=== PATIENT | male | born 1975 | race Caucasian/White ===

== ENCOUNTER 2017-08-01 03:01 | Emergency (ER) | payer SELFPAY ==
[~2017-08-01] VITALS: Ht 175.3 cm; Wt 86.4 kg
[2017-08-01] MEDS ORDERED: HALO5 PO (03:09)
[2017-08-01] MEDS ORDERED: LITH300C3 PO (03:09)
[2017-08-01 03:12] LABS: GLUCOSE,POINT OF CARE 111 MG/DL (70-110)
[2017-08-01 04:09] LABS: AMPHET/METH SCREEN,URINE NEGATIVE (NEGATIVE); BARBITURATE SCREEN, URINE NEGATIVE (NEGATIVE); BENZODIAZEPINES SCREEN,URINE NEGATIVE (NEGATIVE); CANNABINOID SCREEN,URINE POSITIVE (NEGATIVE); COCAINE SCREEN,URINE NEGATIVE (NEGATIVE); METHADONE SCREEN, URINE NEGATIVE (NEGATIVE); OPIATE SCREEN,URINE NEGATIVE (NEGATIVE)
[2017-08-01 04:10] LABS: PHENCYCLIDINE SCREEN,URINE NEGATIVE (NEGATIVE)
[2017-08-01 05:04] VITALS: BP 133/80
== END 2017-08-01 05:06 | disposition home or self-care (01) ==
LOC: EMS 03:03
DX: M79.674 Pain in right toe(s) (principal); F12.90 Cannabis use, unspecified, uncomplicated; E11.9 Type 2 diabetes mellitus without complications; F17.210 Nicotine dependence, cigarettes, uncomplicated
CPT/HCPCS: 36415; 80307; 82962; 99284; G0480

== ENCOUNTER 2018-02-07 18:36 | Inpatient (IN) | payer MEDICAID ==
[~2018-02-07] VITALS: Ht 180.3 cm; Wt 92.5 kg
[~2018-02-07 18:36] MED LIST: HALO5TAB2 PO; LITH300C3 PO
[2018-02-07 19:38] LABS: BASOPHILS % (AUTO) 0.8 % (0.0-2.0); EOSINOPHILS % (AUTO) 3.5 % (1.0-6.0); HEMATOCRIT 42.5 % (41-53); HEMOGLOBIN 14.2 g/dL (13.5-17.5); LYMPHOCYTES # (AUTO) 4.4 K/uL (1.0-4.8); LYMPHOCYTES % (AUTO) 28.9 % (22.0-44.0); MEAN CORPUSCULAR HEMOGLOBIN 26.3 pg (26.0-34.0); MEAN CORPUSCULAR HGB CONC 33.5 G/dL (31.0-37.0); MEAN CORPUSCULAR VOLUME 79 fL (80-100); MONOCYTES # (AUTO) 1.3 K/uL (0.1-1.0); MONOCYTES % (AUTO) 8.3 % (2.0-9.0); NEUTROPHILS % (AUTO) 58.5 % (40.0-70.0); PLATELET COUNT (AUTO) 326 K/uL (150-450); RED BLOOD CELL COUNT(AUTO) 5.41 MIL/uL (4.50-5.90)
[2018-02-07 19:44] LABS: GLUCOSE,POINT OF CARE 117 MG/DL (70-110)
[2018-02-07 19:48] LABS: ANION GAP 6 mmol/L (8-16); CALCIUM, TOTAL 8.8 mg/dL (8.8-10.5); CARBON DIOXIDE 29 mmol/L (22-29); CHLORIDE 107 mmol/L (98-107); CREATININE 0.83 mg/dL (0.60-1.30); GLOMERULAR FILTR. RATE CALC > 60 mL/min (>60); GLUCOSE,RANDOM 105 mg/dL (70-110); POTASSIUM 3.6 mmol/L (3.5-5.1); SODIUM SERUM 142 mmol/L (136-145); UREA NITROGEN, BLOOD 10 mg/dL (7-18)
[2018-02-07 19:54] LABS: ALANINE AMINOTRANSFERASE 23 U/L (12-78); ALBUMIN 3.7 g/dL (3.4-5.0); ALKALINE PHOSPHATASE 94 U/L (46-116); ASPARTATE AMINOTRANSFERASE 13 U/L (15-37); BILIRUBIN,TOTAL 0.6 mg/dL (0.1-1.0); LITHIUM < 0.20 mmol/L (0.60-1.20); TOTAL PROTEIN, SERUM 7.3 g/dL (6.4-8.2)
[2018-02-07 20:46] LABS: AMPHET/METH SCREEN,URINE POSITIVE (NEGATIVE); BARBITURATE SCREEN, URINE NEGATIVE (NEGATIVE); BENZODIAZEPINES SCREEN,URINE NEGATIVE (NEGATIVE); CANNABINOID SCREEN,URINE POSITIVE (NEGATIVE); COCAINE SCREEN,URINE NEGATIVE (NEGATIVE); METHADONE SCREEN, URINE NEGATIVE (NEGATIVE); OPIATE SCREEN,URINE NEGATIVE (NEGATIVE)
[2018-02-07 20:47] LABS: PHENCYCLIDINE SCREEN,URINE NEGATIVE (NEGATIVE)
[2018-02-07] MEDS ORDERED: ZOLPIDEM TARTRATE 10 MG TABLET PO PRN (21:45)
[2018-02-07] MEDS ORDERED: HALOPERIDOL 5 MG TABLET PO PRN (21:45)
[2018-02-08 01:46] VITALS: BP 142/65
[2018-02-08] MEDS: LORazepam 2 MG TABLET PO PRN ×2 (02:46→16:57)
[2018-02-08] MEDS ORDERED: PNEUMOCOCCAL VACCINE POLYVALENT 0.5 ML VIAL [PPSV23] IM ONE (03:15)
[2018-02-08] MEDS ORDERED: DOCUSATE SODIUM 100 MG CAPSULE PO PRN (07:15)
[2018-02-08] MEDS ORDERED: ONDANSETRON HCL 4 MG TABLET PO PRN (07:15)
[2018-02-08] MEDS ORDERED: MAGNESIUM HYDROXIDE SUSPENSION 30 ML UDCUP PO PRN (07:15)
[2018-02-08] MEDS ORDERED: LOPERAMIDE HCL 2 MG CAPSULE PO PRN (07:15)
[2018-02-08] MEDS ORDERED: PETROLATUM,WHITE 71 GM JELLY TP PRN (07:15)
[2018-02-08] MEDS ORDERED: GuaiFENesin/D-METHORPHAN [SUGAR-FREE] 200-20MG/10 ML SYRUP UDCUP PO PRN (07:15)
[2018-02-08] MEDS ORDERED: MAG HYDROX/AL HYDROX/SIMETH ES 30 ML SUSPENSION UDCUP PO PRN (07:15)
[2018-02-08] MEDS ORDERED: ACETAMINOPHEN 325 MG TABLET PO PRN (07:15)
[2018-02-08] MEDS ORDERED: IBUPROFEN 400 MG TABLET PO PRN (07:15)
[2018-02-08] MEDS ORDERED: ALBUTEROL SULFATE HFA 90 MCG/PUFF 8 GM INHALER IH PRN (07:15)
[2018-02-08] MEDS ORDERED: CloNIDine HCL 0.1 MG TABLET PO PRN (07:15)
[2018-02-08 08:09] VITALS: BP 138/64
[2018-02-08 08:46] LABS: CHOL/HDL RATIO 4.5 (4.2-7.3); FREE T4 (FREE THYROXINE) 1.03 ng/dL (0.76-1.46); THYROID STIMULATING HORMONE 0.44 uIU/mL (0.36-3.74)
[2018-02-08] MEDS: HALOPERIDOL 5 MG TABLET PO SCH ×2 (12:37→16:57)
[2018-02-08] MEDS: LITHIUM CARBONATE 300 MG CAPSULE PO SCH ×2 (12:37→16:57)
[2018-02-08 16:00] VITALS: BP 111/85
[2018-02-09 05:14] VITALS: BP 122/72
[2018-02-09 08:00] LABS: AMPHET/METH SCREEN,URINE POSITIVE (NEGATIVE); BARBITURATE SCREEN, URINE NEGATIVE (NEGATIVE); BENZODIAZEPINES SCREEN,URINE NEGATIVE (NEGATIVE); CANNABINOID SCREEN,URINE POSITIVE (NEGATIVE); COCAINE SCREEN,URINE NEGATIVE (NEGATIVE); METHADONE SCREEN, URINE NEGATIVE (NEGATIVE); OPIATE SCREEN,URINE NEGATIVE (NEGATIVE); PHENCYCLIDINE SCREEN,URINE NEGATIVE (NEGATIVE)
[2018-02-09 08:08] VITALS: BP 118/71
[2018-02-09] MEDS: LITHIUM CARBONATE 300 MG CAPSULE PO SCH ×2 (08:37→16:30)
[2018-02-09] MEDS: HALOPERIDOL 5 MG TABLET PO SCH ×2 (08:37→16:30)
[2018-02-09] MEDS: NICOTINE 14 MG/24 HOUR PATCH TD PRN (14:52)
[2018-02-09 16:00] VITALS: BP 115/65
[2018-02-10 06:08] VITALS: BP 110/65
[2018-02-10 08:41] VITALS: BP 118/75
[2018-02-10] MEDS: HALOPERIDOL 5 MG TABLET PO SCH ×2 (09:01→17:08)
[2018-02-10] MEDS: LITHIUM CARBONATE 300 MG CAPSULE PO SCH ×2 (09:01→17:08)
[2018-02-10] MEDS: LORazepam 2 MG TABLET PO PRN ×2 (09:01→17:08)
[2018-02-10 09:38] LABS: ALANINE AMINOTRANSFERASE 23 U/L (12-78); ALKALINE PHOSPHATASE 96 U/L (46-116); ANION GAP 6 mmol/L (8-16); ASPARTATE AMINOTRANSFERASE 11 U/L (15-37); BILIRUBIN,TOTAL 0.8 mg/dL (0.1-1.0); CALCIUM, TOTAL 9.4 mg/dL (8.8-10.5); CARBON DIOXIDE 29 mmol/L (22-29); CHLORIDE 102 mmol/L (98-107); CHOL/HDL RATIO 5.6 (4.2-7.3); CHOLESTEROL 201 mg/dL (131-200); CREATININE 1.02 mg/dL (0.60-1.30); GLOMERULAR FILTR. RATE CALC > 60 mL/min (>60); GLUCOSE,RANDOM 183 mg/dL (70-110); HDL CHOLESTEROL 36 mg/dL (40-60); LDL CHOL (CALC.) 128 mg/dL (0-130); SODIUM SERUM 137 mmol/L (136-145); THYROID STIMULATING HORMONE 0.28 uIU/mL (0.36-3.74); TOTAL PROTEIN, SERUM 7.6 g/dL (6.4-8.2); TRIGLYCERIDES 187 mg/dL (15-150); UREA NITROGEN, BLOOD 15 mg/dL (7-18)
[2018-02-10 16:00] VITALS: BP 122/79
[2018-02-11 06:32] VITALS: BP 137/70
[2018-02-11 08:09] VITALS: BP 132/70
[2018-02-11 08:27] LABS: EOSINOPHILS % (AUTO) 2.9 % (1.0-6.0); HEMATOCRIT 50.4 % (41-53); HEMOGLOBIN 16.6 g/dL (13.5-17.5); LYMPHOCYTES # (AUTO) 2.5 K/uL (1.0-4.8); LYMPHOCYTES % (AUTO) 17.5 % (22.0-44.0); MEAN CORPUSCULAR HEMOGLOBIN 26.3 pg (26.0-34.0); MEAN CORPUSCULAR VOLUME 80 fL (80-100); MONOCYTES # (AUTO) 0.9 K/uL (0.1-1.0); MONOCYTES % (AUTO) 6.3 % (2.0-9.0); NEUTROPHILS # (AUTO) 10.4 K/uL (1.8-7.7); NEUTROPHILS % (AUTO) 72.3 % (40.0-70.0); PLATELET COUNT (AUTO) 383 K/uL (150-450); RED BLOOD CELL COUNT(AUTO) 6.32 MIL/uL (4.50-5.90); RED CELL DISTRIBUTION WIDTH 12.9 % (11.5-14.5)
[2018-02-11] MEDS: HALOPERIDOL 5 MG TABLET PO SCH ×2 (08:30→16:15)
[2018-02-11] MEDS: LITHIUM CARBONATE 300 MG CAPSULE PO SCH ×2 (08:30→16:15)
[2018-02-11] MEDS: LORazepam 2 MG TABLET PO PRN ×2 (09:46→16:15)
[2018-02-11 16:00] VITALS: BP 118/75
[2018-02-12 02:07] VITALS: BP 115/86
[2018-02-12] MEDS: LITHIUM CARBONATE 300 MG CAPSULE PO SCH ×2 (08:26→16:33)
[2018-02-12] MEDS: HALOPERIDOL 5 MG TABLET PO SCH ×2 (08:26→16:33)
[2018-02-12 09:06] VITALS: BP 126/75
[2018-02-12] MEDS: NICOTINE 14 MG/24 HOUR PATCH TD PRN (11:30)
[2018-02-12] MEDS: LORazepam 2 MG TABLET PO PRN (16:34)
[2018-02-12 17:19] VITALS: BP 121/72
[2018-02-13 06:04] VITALS: BP 122/70
[2018-02-13 08:09] VITALS: BP 118/76
[2018-02-13 08:21] LABS: BASOPHILS % (AUTO) 0.9 % (0.0-2.0); HEMATOCRIT 47.8 % (41-53); HEMOGLOBIN 15.8 g/dL (13.5-17.5); LYMPHOCYTES # (AUTO) 2.5 K/uL (1.0-4.8); LYMPHOCYTES % (AUTO) 17.4 % (22.0-44.0); MEAN CORPUSCULAR HEMOGLOBIN 26.5 pg (26.0-34.0); MEAN CORPUSCULAR HGB CONC 33.1 G/dL (31.0-37.0); MEAN CORPUSCULAR VOLUME 80 fL (80-100); MONOCYTES # (AUTO) 0.8 K/uL (0.1-1.0); MONOCYTES % (AUTO) 5.8 % (2.0-9.0); NEUTROPHILS # (AUTO) 10.5 K/uL (1.8-7.7); NEUTROPHILS % (AUTO) 71.9 % (40.0-70.0); PLATELET COUNT (AUTO) 338 K/uL (150-450); RED BLOOD CELL COUNT(AUTO) 5.98 MIL/uL (4.50-5.90); RED CELL DISTRIBUTION WIDTH 13.2 % (11.5-14.5)
[2018-02-13] MEDS: OMEGA-3/DHA/EPA/FISH OIL 1,000 MG CAPSULE PO SCH (08:29)
[2018-02-13] MEDS: LITHIUM CARBONATE 300 MG CAPSULE PO SCH ×2 (08:29→16:57)
[2018-02-13] MEDS: HALOPERIDOL 5 MG TABLET PO SCH ×2 (08:29→16:56)
[2018-02-13] MEDS: NICOTINE 14 MG/24 HOUR PATCH TD PRN (12:58)
[2018-02-13 16:58] VITALS: BP 114/67
[2018-02-14 06:19] VITALS: BP 119/70
[2018-02-14 08:09] VITALS: BP 122/74
[2018-02-14] MEDS: LITHIUM CARBONATE 300 MG CAPSULE PO SCH ×2 (09:13→16:14)
[2018-02-14] MEDS: HALOPERIDOL 5 MG TABLET PO SCH ×2 (09:13→16:14)
[2018-02-14] MEDS: OMEGA-3/DHA/EPA/FISH OIL 1,000 MG CAPSULE PO SCH (09:14)
[2018-02-14] MEDS: NICOTINE 14 MG/24 HOUR PATCH TD PRN (13:22)
[2018-02-14 16:00] VITALS: BP 118/68
[2018-02-14] MEDS: LORazepam 2 MG TABLET PO PRN (16:14)
[2018-02-15 06:28] VITALS: BP 122/73
[2018-02-15 08:17] VITALS: BP 120/70
[2018-02-15] MEDS: LITHIUM CARBONATE 300 MG CAPSULE PO SCH ×2 (08:27→16:17)
[2018-02-15] MEDS: OMEGA-3/DHA/EPA/FISH OIL 1,000 MG CAPSULE PO SCH (08:27)
[2018-02-15] MEDS: HALOPERIDOL 5 MG TABLET PO SCH ×2 (08:27→16:17)
[2018-02-15 16:00] VITALS: BP 129/65
[2018-02-15] MEDS: LORazepam 2 MG TABLET PO PRN (16:17)
[2018-02-16 06:20] VITALS: BP 128/78
[2018-02-16 08:09] VITALS: BP 124/68
[2018-02-16] MEDS: LITHIUM CARBONATE 300 MG CAPSULE PO SCH ×2 (08:35→16:57)
[2018-02-16] MEDS: HALOPERIDOL 5 MG TABLET PO SCH ×2 (08:35→16:58)
[2018-02-16] MEDS: OMEGA-3/DHA/EPA/FISH OIL 1,000 MG CAPSULE PO SCH (08:35)
[2018-02-16] MEDS: LORazepam 2 MG TABLET PO PRN ×2 (08:35→16:57)
[2018-02-16 16:00] VITALS: BP 111/73
[2018-02-17 03:14] VITALS: BP 124/72
[2018-02-17 08:12] VITALS: BP 117/70
[2018-02-17] MEDS: OMEGA-3/DHA/EPA/FISH OIL 1,000 MG CAPSULE PO SCH (08:36)
[2018-02-17] MEDS: HALOPERIDOL 5 MG TABLET PO SCH ×2 (08:36→16:49)
[2018-02-17] MEDS: LITHIUM CARBONATE 300 MG CAPSULE PO SCH (08:36)
[2018-02-17 16:00] VITALS: BP 110/67
[2018-02-17] MEDS: LORazepam 2 MG TABLET PO PRN (16:49)
[2018-02-17] MEDS: LITHIUM CARBONATE 600 MG CAPSULE PO SCH (16:49)
[2018-02-18 00:42] VITALS: BP 120/83
[2018-02-18 08:05] VITALS: BP 114/64
[2018-02-18 08:21] LABS: BASOPHILS % (AUTO) 2.3 % (0.0-2.0); EOSINOPHILS % (AUTO) 4.9 % (1.0-6.0); HEMATOCRIT 47.4 % (41-53); HEMOGLOBIN 16.1 g/dL (13.5-17.5); LYMPHOCYTES # (AUTO) 2.8 K/uL (1.0-4.8); LYMPHOCYTES % (AUTO) 23.3 % (22.0-44.0); MEAN CORPUSCULAR HEMOGLOBIN 26.6 pg (26.0-34.0); MEAN CORPUSCULAR VOLUME 78 fL (80-100); MONOCYTES # (AUTO) 0.9 K/uL (0.1-1.0); MONOCYTES % (AUTO) 7.5 % (2.0-9.0); NEUTROPHILS # (AUTO) 7.6 K/uL (1.8-7.7); PLATELET COUNT (AUTO) 330 K/uL (150-450); RED BLOOD CELL COUNT(AUTO) 6.06 MIL/uL (4.50-5.90)
[2018-02-18] MEDS ORDERED: ARIPiprazole ER SUSPENSION 400 MG PRE-FILLED DUAL CHAMBER SYRINGE IM SCH (09:00)
[2018-02-18] MEDS: HALOPERIDOL 5 MG TABLET PO SCH (09:57)
[2018-02-18] MEDS: LITHIUM CARBONATE 600 MG CAPSULE PO SCH ×2 (09:57→16:10)
[2018-02-18] MEDS: OMEGA-3/DHA/EPA/FISH OIL 1,000 MG CAPSULE PO SCH (09:58)
[2018-02-18 16:00] VITALS: BP 108/68
[2018-02-18] MEDS: LORazepam 2 MG TABLET PO PRN (16:10)
[2018-02-19 05:30] VITALS: BP 112/75
[2018-02-19 08:08] VITALS: BP 110/76
[2018-02-19] MEDS: LITHIUM CARBONATE 600 MG CAPSULE PO SCH ×2 (08:19→16:26)
[2018-02-19] MEDS: OMEGA-3/DHA/EPA/FISH OIL 1,000 MG CAPSULE PO SCH (08:19)
[2018-02-19 16:00] VITALS: BP 121/71
[2018-02-19] MEDS: LORazepam 2 MG TABLET PO PRN (16:26)
[2018-02-20 05:13] VITALS: BP 115/73
[2018-02-20] MEDS: OMEGA-3/DHA/EPA/FISH OIL 1,000 MG CAPSULE PO SCH (08:33)
[2018-02-20] MEDS: LITHIUM CARBONATE 600 MG CAPSULE PO SCH ×2 (08:33→16:51)
[2018-02-20 08:49] VITALS: BP 127/67
[2018-02-20 16:11] VITALS: BP 123/74
[2018-02-20] MEDS: LORazepam 2 MG TABLET PO PRN (16:51)
[2018-02-21 05:11] VITALS: BP 122/75
[2018-02-21] MEDS: LITHIUM CARBONATE 600 MG CAPSULE PO SCH ×2 (08:22→16:53)
[2018-02-21] MEDS: OMEGA-3/DHA/EPA/FISH OIL 1,000 MG CAPSULE PO SCH (08:23)
[2018-02-21 09:24] VITALS: BP 113/73
[2018-02-21 17:22] VITALS: BP 104/65
[2018-02-22 04:27] VITALS: BP 108/70
[2018-02-22 08:09] VITALS: BP 112/74
[2018-02-22] MEDS: LITHIUM CARBONATE 600 MG CAPSULE PO SCH ×2 (08:41→17:02)
[2018-02-22] MEDS: OMEGA-3/DHA/EPA/FISH OIL 1,000 MG CAPSULE PO SCH (08:41)
[2018-02-22 16:00] VITALS: BP 109/70
[2018-02-23 06:51] VITALS: BP 110/75
[2018-02-23] MEDS: LITHIUM CARBONATE 600 MG CAPSULE PO SCH (08:24)
[2018-02-23] MEDS: OMEGA-3/DHA/EPA/FISH OIL 1,000 MG CAPSULE PO SCH (08:24)
[2018-02-23 08:48] VITALS: BP 109/63
[2018-02-23] MEDS ORDERED: LITH600 PO (08:58)
[2018-02-23] MEDS ORDERED: ARIP400S3 IM (08:58)
== END 2018-02-23 11:46 | disposition home or self-care (01) | DRG 753 ==
LOC: EMS 18:38 → B3A 22:04
DX: F31.2 Bipolar disorder, current episode manic severe with psychotic features (principal); E11.9 Type 2 diabetes mellitus without complications; D72.829 Elevated white blood cell count, unspecified; F12.10 Cannabis abuse, uncomplicated; F15.10 Other stimulant abuse, uncomplicated; F17.210 Nicotine dependence, cigarettes, uncomplicated; R45.87 Impulsiveness; Z71.6 Tobacco abuse counseling; Z71.51 Drug abuse counseling and surveillance of drug abuser
CPT/HCPCS: 80307; 83036; 84439; 84443; 90686; 90732; G0480; J0401

== ENCOUNTER 2018-04-03 12:00 | Inpatient (IN) | payer MEDICAID, MEDICARE ==
[~2018-04-03] VITALS: Ht 180.3 cm; Wt 96.3 kg
[~2018-04-03 12:00] MED LIST changes: +ARIP400S3 IM; -HALO5TAB2 PO; -LITH300C3 PO; +LITH600 PO
[2018-04-03] MEDS ORDERED: LORazepam 2 MG/ML VIAL ONE (12:28)
[2018-04-03] MEDS ORDERED: DiphenhydrAMINE HCL 50 MG/ML VIAL ONE (12:28)
[2018-04-03] MEDS ORDERED: HALOPERIDOL LACTATE 5 MG/ML VIAL ONE (12:28)
[2018-04-03 12:29] LABS: BASOPHILS % (AUTO) 1.3 % (0.0-2.0); EOSINOPHILS % (AUTO) 5.2 % (1.0-6.0); HEMATOCRIT 42.6 % (41-53); HEMOGLOBIN 14.3 g/dL (13.5-17.5); LYMPHOCYTES # (AUTO) 3.7 K/uL (1.0-4.8); LYMPHOCYTES % (AUTO) 23.9 % (22.0-44.0); MEAN CORPUSCULAR HEMOGLOBIN 26.1 pg (26.0-34.0); MEAN CORPUSCULAR HGB CONC 33.7 G/dL (31.0-37.0); MEAN CORPUSCULAR VOLUME 77 fL (80-100); MONOCYTES # (AUTO) 1.3 K/uL (0.1-1.0); MONOCYTES % (AUTO) 8.6 % (2.0-9.0); NEUTROPHILS # (AUTO) 9.4 K/uL (1.8-7.7); PLATELET COUNT (AUTO) 372 K/uL (150-450); RED CELL DISTRIBUTION WIDTH 14.5 % (11.5-14.5)
[2018-04-03] MEDS ORDERED: DiphenhydrAMINE HCL 50 MG/ML VIAL IM ONE (12:30)
[2018-04-03] MEDS ORDERED: HALOPERIDOL LACTATE 5 MG/ML VIAL IM ONE (12:30)
[2018-04-03] MEDS ORDERED: LORazepam 2 MG/ML VIAL IM ONE (12:30)
[2018-04-03 12:52] LABS: ANION GAP 11 mmol/L (8-16); CALCIUM, TOTAL 9.3 mg/dL (8.8-10.5); CARBON DIOXIDE 25 mmol/L (22-29); CHLORIDE 101 mmol/L (98-107); CREATININE 0.87 mg/dL (0.60-1.30); GLOMERULAR FILTR. RATE CALC > 60 mL/min (>60); GLUCOSE,RANDOM 101 mg/dL (70-110); POTASSIUM 3.8 mmol/L (3.5-5.1); SODIUM SERUM 137 mmol/L (136-145); UREA NITROGEN, BLOOD 10 mg/dL (7-18)
[2018-04-03 12:53] LABS: LITHIUM 0.55 mmol/L (0.60-1.20)
[2018-04-03 12:58] LABS: ALANINE AMINOTRANSFERASE 93 U/L (12-78); ALBUMIN 3.8 g/dL (3.4-5.0); ALKALINE PHOSPHATASE 96 U/L (46-116); ASPARTATE AMINOTRANSFERASE 35 U/L (15-37); BILIRUBIN,TOTAL 1.2 mg/dL (0.1-1.0); TOTAL PROTEIN, SERUM 7.8 g/dL (6.4-8.2)
[2018-04-03] MEDS ORDERED: LORazepam 2 MG TABLET PO PRN (14:00)
[2018-04-03] MEDS ORDERED: ZOLPIDEM TARTRATE 10 MG TABLET PO PRN (14:00)
[2018-04-03] MEDS ORDERED: HALOPERIDOL 5 MG TABLET PO PRN (14:00)
[2018-04-03 16:49] LABS: GLUCOSE,POINT OF CARE 115 MG/DL (70-110)
[2018-04-03 18:18] VITALS: BP 113/61
[2018-04-03] MEDS ORDERED: ACETAMINOPHEN 325 MG TABLET PO PRN (18:30)
[2018-04-03] MEDS ORDERED: PETROLATUM,WHITE 71 GM JELLY TP PRN (18:30)
[2018-04-03] MEDS ORDERED: CloNIDine HCL 0.1 MG TABLET PO PRN (18:30)
[2018-04-03] MEDS ORDERED: GuaiFENesin/D-METHORPHAN [SUGAR-FREE] 200-20MG/10 ML SYRUP UDCUP PO PRN (18:30)
[2018-04-03] MEDS ORDERED: MAG HYDROX/AL HYDROX/SIMETH ES 30 ML SUSPENSION UDCUP PO PRN (18:30)
[2018-04-03] MEDS ORDERED: MAGNESIUM HYDROXIDE SUSPENSION 30 ML UDCUP PO PRN (18:30)
[2018-04-03] MEDS ORDERED: ONDANSETRON HCL 4 MG TABLET PO PRN (18:30)
[2018-04-03] MEDS ORDERED: DOCUSATE SODIUM 100 MG CAPSULE PO PRN (18:30)
[2018-04-03] MEDS ORDERED: LOPERAMIDE HCL 2 MG CAPSULE PO PRN (18:30)
[2018-04-03] MEDS ORDERED: IBUPROFEN 400 MG TABLET PO PRN (18:30)
[2018-04-03] MEDS ORDERED: ALBUTEROL SULFATE HFA 90 MCG/PUFF 8 GM INHALER IH PRN (18:30)
[2018-04-03] MEDS ORDERED: NICOTINE 14 MG/24 HOUR PATCH TD PRN (18:30)
[2018-04-04 07:34] LABS: HEMOGLOBIN A1C 7.6 % (4.5-6.2)
[2018-04-04 07:53] LABS: CHOL/HDL RATIO 5.1 (4.2-7.3); THYROID STIMULATING HORMONE 0.49 uIU/mL (0.36-3.74)
[2018-04-04 08:00] VITALS: BP 114/66
[2018-04-04] MEDS ORDERED: GLUCAGON,HUMAN RECOMBINANT 1 MG VIAL IM PRN (11:45)
[2018-04-04 16:36] VITALS: BP 113/61
[2018-04-04] MEDS: LITHIUM CARBONATE 600 MG CAPSULE PO SCH (16:37)
[2018-04-05 01:02] VITALS: BP 112/63
[2018-04-05] MEDS ORDERED: PNEUMOCOCCAL VACCINE POLYVALENT 0.5 ML VIAL [PPSV23] IM ONE (03:00)
[2018-04-05 06:19] LABS: GLUCOMETER DEV NAME(LOC) BV2X.; GLUCOSE,POINT OF CARE 172 MG/DL (70-110)
[2018-04-05 08:47] VITALS: BP 121/70
[2018-04-05] MEDS: LITHIUM CARBONATE 600 MG CAPSULE PO SCH ×2 (09:05→16:32)
[2018-04-05 11:14] LABS: GLUCOMETER DEV NAME(LOC) BV2X.; GLUCOSE,POINT OF CARE 139 MG/DL (70-110)
[2018-04-05] MEDS: NICOTINE 21 MG/24 HOUR PATCH TD PRN (16:32)
[2018-04-05 16:38] VITALS: BP 127/75
[2018-04-05 16:49] LABS: GLUCOMETER DEV NAME(LOC) BV2X.; GLUCOSE,POINT OF CARE 156 MG/DL (70-110)
[2018-04-05] MEDS: INSULIN LISPRO 100 UNITS/ML SQ PRN (16:54)
[2018-04-05 21:40] LABS: GLUCOMETER DEV NAME(LOC) BV2X.; GLUCOSE,POINT OF CARE 135 MG/DL (70-110)
[2018-04-06 06:10] VITALS: BP 125/71
[2018-04-06 06:59] LABS: GLUCOMETER DEV NAME(LOC) BV2X.; GLUCOSE,POINT OF CARE 139 MG/DL (70-110)
[2018-04-06] MEDS: MetFORMIN HCL 500 MG TABLET PO SCH (07:05)
[2018-04-06 09:06] VITALS: BP 113/60
[2018-04-06] MEDS: LITHIUM CARBONATE 600 MG CAPSULE PO SCH ×2 (09:07→17:17)
[2018-04-06 11:19] LABS: GLUCOMETER DEV NAME(LOC) BV2X.; GLUCOSE,POINT OF CARE 97 MG/DL (70-110)
[2018-04-06 16:49] LABS: GLUCOMETER DEV NAME(LOC) BV2X.; GLUCOSE,POINT OF CARE 136 MG/DL (70-110)
[2018-04-06] MEDS: NICOTINE 21 MG/24 HOUR PATCH TD PRN (17:17)
[2018-04-06 17:34] VITALS: BP 130/66
[2018-04-07 00:26] VITALS: BP 127/66
[2018-04-07] MEDS: INSULIN LISPRO 100 UNITS/ML SQ PRN (06:42)
[2018-04-07] MEDS: MetFORMIN HCL 500 MG TABLET PO SCH (07:02)
[2018-04-07 07:09] LABS: GLUCOMETER DEV NAME(LOC) BV2X.; GLUCOSE,POINT OF CARE 143 MG/DL (70-110)
[2018-04-07 07:48] LABS: BASOPHILS % (AUTO) 1.1 % (0.0-2.0); EOSINOPHILS % (AUTO) 4.3 % (1.0-6.0); HEMATOCRIT 43.9 % (41-53); HEMOGLOBIN 14.5 g/dL (13.5-17.5); LYMPHOCYTES # (AUTO) 2.5 K/uL (1.0-4.8); LYMPHOCYTES % (AUTO) 24.7 % (22.0-44.0); MEAN CORPUSCULAR HEMOGLOBIN 25.9 pg (26.0-34.0); MEAN CORPUSCULAR VOLUME 79 fL (80-100); MONOCYTES # (AUTO) 0.6 K/uL (0.1-1.0); MONOCYTES % (AUTO) 6.4 % (2.0-9.0); NEUTROPHILS # (AUTO) 6.4 K/uL (1.8-7.7); NEUTROPHILS % (AUTO) 63.5 % (40.0-70.0); PLATELET COUNT (AUTO) 367 K/uL (150-450); RED BLOOD CELL COUNT(AUTO) 5.59 MIL/uL (4.50-5.90); RED CELL DISTRIBUTION WIDTH 14.7 % (11.5-14.5)
[2018-04-07 08:36] VITALS: BP 116/72
[2018-04-07] MEDS: LITHIUM CARBONATE 600 MG CAPSULE PO SCH ×2 (09:40→16:22)
[2018-04-07 11:10] LABS: GLUCOMETER DEV NAME(LOC) BV2X.; GLUCOSE,POINT OF CARE 95 MG/DL (70-110)
[2018-04-07 16:13] VITALS: BP 121/70
[2018-04-07 17:34] LABS: GLUCOMETER DEV NAME(LOC) BV2X.; GLUCOSE,POINT OF CARE 112 MG/DL (70-110)
[2018-04-08 00:31] VITALS: BP 123/74
[2018-04-08] MEDS: MetFORMIN HCL 500 MG TABLET PO SCH (07:03)
[2018-04-08 07:19] LABS: GLUCOMETER DEV NAME(LOC) BV2X.; GLUCOSE,POINT OF CARE 138 MG/DL (70-110)
[2018-04-08 08:27] VITALS: BP 109/77
[2018-04-08] MEDS: LITHIUM CARBONATE 600 MG CAPSULE PO SCH ×2 (10:19→16:23)
[2018-04-08] MEDS: NICOTINE 21 MG/24 HOUR PATCH TD PRN (10:20)
[2018-04-08 11:24] LABS: GLUCOMETER DEV NAME(LOC) BV2X.; GLUCOSE,POINT OF CARE 102 MG/DL (70-110)
[2018-04-08 16:21] VITALS: BP 120/69
[2018-04-08 16:39] LABS: GLUCOMETER DEV NAME(LOC) BV2S.; GLUCOSE,POINT OF CARE 145 MG/DL (70-110)
[2018-04-08] MEDS: INSULIN LISPRO 100 UNITS/ML SQ PRN ×2 (16:41→21:55)
[2018-04-08 22:29] LABS: GLUCOMETER DEV NAME(LOC) BV2S.; GLUCOSE,POINT OF CARE 145 MG/DL (70-110)
[2018-04-09 00:28] VITALS: BP 111/60
[2018-04-09 05:44] LABS: GLUCOMETER DEV NAME(LOC) BV2X.; GLUCOSE,POINT OF CARE 148 MG/DL (70-110)
[2018-04-09] MEDS: INSULIN LISPRO 100 UNITS/ML SQ PRN ×3 (05:45→20:49)
[2018-04-09] MEDS: MetFORMIN HCL 500 MG TABLET PO SCH (06:00)
[2018-04-09 08:35] VITALS: BP 100/63
[2018-04-09] MEDS: LITHIUM CARBONATE 600 MG CAPSULE PO SCH ×2 (08:55→16:26)
[2018-04-09 11:14] LABS: GLUCOMETER DEV NAME(LOC) BV2X.; GLUCOSE,POINT OF CARE 104 MG/DL (70-110)
[2018-04-09 16:22] VITALS: BP 110/69
[2018-04-09 16:50] LABS: GLUCOMETER DEV NAME(LOC) BV2X.; GLUCOSE,POINT OF CARE 146 MG/DL (70-110)
[2018-04-09 20:44] LABS: GLUCOMETER DEV NAME(LOC) BV2X.; GLUCOSE,POINT OF CARE 171 MG/DL (70-110)
[2018-04-10 00:39] VITALS: BP 107/64
[2018-04-10] MEDS: MetFORMIN HCL 500 MG TABLET PO SCH (06:45)
[2018-04-10 07:14] LABS: GLUCOMETER DEV NAME(LOC) BV2X.; GLUCOSE,POINT OF CARE 128 MG/DL (70-110)
[2018-04-10 08:38] VITALS: BP 117/75
[2018-04-10] MEDS: LITHIUM CARBONATE 600 MG CAPSULE PO SCH ×2 (08:43→16:49)
[2018-04-10 11:14] LABS: GLUCOMETER DEV NAME(LOC) BV2X.; GLUCOSE,POINT OF CARE 134 MG/DL (70-110)
[2018-04-10 16:17] VITALS: BP 115/59
[2018-04-10 16:55] LABS: GLUCOMETER DEV NAME(LOC) BV2X.; GLUCOSE,POINT OF CARE 114 MG/DL (70-110)
[2018-04-10 21:09] LABS: GLUCOMETER DEV NAME(LOC) BV2X.; GLUCOSE,POINT OF CARE 109 MG/DL (70-110)
[2018-04-11 06:27] VITALS: BP 118/70
[2018-04-11] MEDS: INSULIN LISPRO 100 UNITS/ML SQ PRN (06:58)
[2018-04-11] MEDS: MetFORMIN HCL 500 MG TABLET PO SCH (07:08)
[2018-04-11 07:39] LABS: GLUCOMETER DEV NAME(LOC) BV2X.; GLUCOSE,POINT OF CARE 143 MG/DL (70-110)
[2018-04-11 08:53] VITALS: BP 127/76
[2018-04-11] MEDS: LITHIUM CARBONATE 600 MG CAPSULE PO SCH ×2 (09:07→16:28)
[2018-04-11 11:19] LABS: GLUCOMETER DEV NAME(LOC) BV2X.; GLUCOSE,POINT OF CARE 83 MG/DL (70-110)
[2018-04-11 17:05] LABS: GLUCOMETER DEV NAME(LOC) BV2X.; GLUCOSE,POINT OF CARE 109 MG/DL (70-110)
[2018-04-11 18:02] VITALS: BP 112/71
[2018-04-12 05:39] VITALS: BP 110/68
[2018-04-12] MEDS: MetFORMIN HCL 500 MG TABLET PO SCH (06:57)
[2018-04-12 07:09] LABS: GLUCOMETER DEV NAME(LOC) BV2X.; GLUCOSE,POINT OF CARE 138 MG/DL (70-110)
[2018-04-12 08:25] VITALS: BP 123/63
[2018-04-12 08:45] LABS: BASOPHILS % (AUTO) 1.2 % (0.0-2.0); EOSINOPHILS % (AUTO) 3.2 % (1.0-6.0); HEMATOCRIT 43.3 % (41-53); HEMOGLOBIN 14.4 g/dL (13.5-17.5); LYMPHOCYTES # (AUTO) 2.4 K/uL (1.0-4.8); LYMPHOCYTES % (AUTO) 20.3 % (22.0-44.0); MEAN CORPUSCULAR HEMOGLOBIN 25.8 pg (26.0-34.0); MEAN CORPUSCULAR HGB CONC 33.3 G/dL (31.0-37.0); MEAN CORPUSCULAR VOLUME 77 fL (80-100); MONOCYTES # (AUTO) 0.7 K/uL (0.1-1.0); NEUTROPHILS % (AUTO) 69.3 % (40.0-70.0); PLATELET COUNT (AUTO) 348 K/uL (150-450); RED CELL DISTRIBUTION WIDTH 14.3 % (11.5-14.5)
[2018-04-12] MEDS: LITHIUM CARBONATE 600 MG CAPSULE PO SCH ×2 (09:27→16:35)
[2018-04-12 09:35] LABS: ALANINE AMINOTRANSFERASE 52 U/L (12-78); ALBUMIN 3.6 g/dL (3.4-5.0); ALKALINE PHOSPHATASE 79 U/L (46-116); ANION GAP 6 mmol/L (8-16); ASPARTATE AMINOTRANSFERASE 15 U/L (15-37); BILIRUBIN,TOTAL 0.7 mg/dL (0.1-1.0); CALCIUM, TOTAL 9.6 mg/dL (8.8-10.5); CARBON DIOXIDE 28 mmol/L (22-29); CHLORIDE 101 mmol/L (98-107); CREATININE 0.85 mg/dL (0.60-1.30); FREE T4 (FREE THYROXINE) 0.82 ng/dL (0.76-1.46); GLOMERULAR FILTR. RATE CALC > 60 mL/min (>60); GLUCOSE,RANDOM 173 mg/dL (70-110); POTASSIUM 4.2 mmol/L (3.5-5.1); SODIUM SERUM 135 mmol/L (136-145); THYROID STIMULATING HORMONE 2.15 uIU/mL (0.36-3.74); TOTAL PROTEIN, SERUM 7.4 g/dL (6.4-8.2); UREA NITROGEN, BLOOD 14 mg/dL (7-18)
[2018-04-12 10:03] LABS: LITHIUM 0.74 mmol/L (0.60-1.20)
[2018-04-12 13:34] LABS: GLUCOMETER DEV NAME(LOC) BV2S.; GLUCOSE,POINT OF CARE 170 MG/DL (70-110)
[2018-04-12 16:11] VITALS: BP 109/68
[2018-04-12 16:29] LABS: GLUCOMETER DEV NAME(LOC) BV2S.; GLUCOSE,POINT OF CARE 119 MG/DL (70-110)
[2018-04-12 20:29] LABS: GLUCOMETER DEV NAME(LOC) BV2S.; GLUCOSE,POINT OF CARE 139 MG/DL (70-110)
[2018-04-13 06:06] LABS: GLUCOMETER DEV NAME(LOC) BV2S.; GLUCOSE,POINT OF CARE 143 MG/DL (70-110)
[2018-04-13 06:23] VITALS: BP 121/75
[2018-04-13] MEDS: MetFORMIN HCL 500 MG TABLET PO SCH (06:34)
[2018-04-13] MEDS: INSULIN LISPRO 100 UNITS/ML SQ PRN ×2 (06:36→20:31)
[2018-04-13 08:19] VITALS: BP 108/70
[2018-04-13] MEDS: LITHIUM CARBONATE 600 MG CAPSULE PO SCH ×2 (08:32→16:38)
[2018-04-13 10:59] LABS: GLUCOMETER DEV NAME(LOC) BV2S.; GLUCOSE,POINT OF CARE 113 MG/DL (70-110)
[2018-04-13 16:14] VITALS: BP 108/67
[2018-04-13 16:54] LABS: GLUCOMETER DEV NAME(LOC) BV2S.; GLUCOSE,POINT OF CARE 100 MG/DL (70-110)
[2018-04-13 20:53] LABS: GLUCOMETER DEV NAME(LOC) BV2S.; GLUCOSE,POINT OF CARE 154 MG/DL (70-110)
[2018-04-14 05:26] VITALS: BP 121/68
[2018-04-14 06:19] LABS: GLUCOMETER DEV NAME(LOC) BV2S.; GLUCOSE,POINT OF CARE 130 MG/DL (70-110)
[2018-04-14] MEDS: MetFORMIN HCL 500 MG TABLET PO SCH (07:01)
[2018-04-14 08:14] VITALS: BP 114/74
[2018-04-14] MEDS: LITHIUM CARBONATE 600 MG CAPSULE PO SCH ×2 (09:11→17:00)
[2018-04-14 11:44] LABS: GLUCOMETER DEV NAME(LOC) BV2S.; GLUCOSE,POINT OF CARE 165 MG/DL (70-110)
[2018-04-14] MEDS: INSULIN LISPRO 100 UNITS/ML SQ PRN ×2 (11:53→21:34)
[2018-04-14 16:27] VITALS: BP 101/64
[2018-04-14 16:34] LABS: GLUCOMETER DEV NAME(LOC) BV2S.; GLUCOSE,POINT OF CARE 120 MG/DL (70-110)
[2018-04-14 20:53] LABS: GLUCOMETER DEV NAME(LOC) BV2S.; GLUCOSE,POINT OF CARE 162 MG/DL (70-110)
[2018-04-15 00:18] VITALS: BP 114/64
[2018-04-15] MEDS: MetFORMIN HCL 500 MG TABLET PO SCH (06:08)
[2018-04-15 06:15] LABS: GLUCOMETER DEV NAME(LOC) BV2S.; GLUCOSE,POINT OF CARE 134 MG/DL (70-110)
[2018-04-15 08:07] VITALS: BP 109/64
[2018-04-15] MEDS: LITHIUM CARBONATE 600 MG CAPSULE PO SCH ×2 (08:44→16:15)
[2018-04-15 10:59] LABS: GLUCOMETER DEV NAME(LOC) BV2S.; GLUCOSE,POINT OF CARE 86 MG/DL (70-110)
[2018-04-15 15:44] LABS: GLUCOMETER DEV NAME(LOC) BV2S.; GLUCOSE,POINT OF CARE 132 MG/DL (70-110)
[2018-04-15 16:13] VITALS: BP 124/72
[2018-04-15 19:59] LABS: GLUCOMETER DEV NAME(LOC) BV2S.; GLUCOSE,POINT OF CARE 123 MG/DL (70-110)
[2018-04-16 02:42] VITALS: BP 102/63
[2018-04-16 06:35] LABS: GLUCOMETER DEV NAME(LOC) BV2S.; GLUCOSE,POINT OF CARE 130 MG/DL (70-110)
[2018-04-16] MEDS: MetFORMIN HCL 500 MG TABLET PO SCH (06:36)
[2018-04-16 08:10] VITALS: BP 108/67
[2018-04-16] MEDS: LITHIUM CARBONATE 600 MG CAPSULE PO SCH ×2 (08:34→16:32)
[2018-04-16 10:53] LABS: GLUCOMETER DEV NAME(LOC) BV2S.; GLUCOSE,POINT OF CARE 115 MG/DL (70-110)
[2018-04-16 16:19] LABS: GLUCOMETER DEV NAME(LOC) BV2S.; GLUCOSE,POINT OF CARE 182 MG/DL (70-110)
[2018-04-16 16:27] VITALS: BP 110/73
[2018-04-16] MEDS: INSULIN LISPRO 100 UNITS/ML SQ PRN (16:33)
[2018-04-16 20:20] LABS: GLUCOMETER DEV NAME(LOC) BV2S.; GLUCOSE,POINT OF CARE 139 MG/DL (70-110)
[2018-04-17 06:17] VITALS: BP 112/71
[2018-04-17] MEDS: MetFORMIN HCL 500 MG TABLET PO SCH (06:36)
[2018-04-17 06:48] LABS: GLUCOMETER DEV NAME(LOC) BV2S.; GLUCOSE,POINT OF CARE 134 MG/DL (70-110)
[2018-04-17 08:08] VITALS: BP 119/42
[2018-04-17] MEDS: LITHIUM CARBONATE 600 MG CAPSULE PO SCH ×2 (08:37→16:25)
[2018-04-17 10:12] VITALS: BP 120/68
[2018-04-17] MEDS: INSULIN LISPRO 100 UNITS/ML SQ PRN ×2 (10:56→20:24)
[2018-04-17 10:58] LABS: GLUCOMETER DEV NAME(LOC) BV2S.; GLUCOSE,POINT OF CARE 154 MG/DL (70-110)
[2018-04-17 16:13] VITALS: BP 116/64
[2018-04-17 16:55] LABS: GLUCOMETER DEV NAME(LOC) BV2S.; GLUCOSE,POINT OF CARE 123 MG/DL (70-110)
[2018-04-17 20:44] LABS: GLUCOMETER DEV NAME(LOC) BV2S.; GLUCOSE,POINT OF CARE 164 MG/DL (70-110)
[2018-04-18 04:38] VITALS: BP 124/62
[2018-04-18 06:45] LABS: GLUCOMETER DEV NAME(LOC) BV2S.; GLUCOSE,POINT OF CARE 129 MG/DL (70-110)
[2018-04-18] MEDS: MetFORMIN HCL 500 MG TABLET PO SCH (07:12)
[2018-04-18] MEDS: LITHIUM CARBONATE 600 MG CAPSULE PO SCH ×2 (08:28→16:14)
[2018-04-18 08:29] VITALS: BP 114/68
[2018-04-18] MEDS: INSULIN LISPRO 100 UNITS/ML SQ PRN (10:52)
[2018-04-18 10:59] LABS: GLUCOMETER DEV NAME(LOC) BV2S.; GLUCOSE,POINT OF CARE 142 MG/DL (70-110)
[2018-04-18 16:09] VITALS: BP 114/75
[2018-04-18 16:24] LABS: GLUCOMETER DEV NAME(LOC) BV2S.; GLUCOSE,POINT OF CARE 135 MG/DL (70-110)
[2018-04-18 20:34] LABS: GLUCOMETER DEV NAME(LOC) BV2S.; GLUCOSE,POINT OF CARE 127 MG/DL (70-110)
[2018-04-19 01:30] VITALS: BP 112/80
[2018-04-19 06:59] LABS: GLUCOMETER DEV NAME(LOC) BV2S.; GLUCOSE,POINT OF CARE 146 MG/DL (70-110)
[2018-04-19] MEDS: MetFORMIN HCL 500 MG TABLET PO SCH (06:59)
[2018-04-19] MEDS ORDERED: METF-960 PO (07:48)
[2018-04-19] MEDS ORDERED: NICO-703 TD (07:49)
[2018-04-19 08:00] VITALS: BP 114/62
[2018-04-19] MEDS: LITHIUM CARBONATE 600 MG CAPSULE PO SCH (09:04)
[2018-04-19 11:14] LABS: GLUCOMETER DEV NAME(LOC) BV2S.; GLUCOSE,POINT OF CARE 66 MG/DL (70-110)
== END 2018-04-19 11:27 | disposition home or self-care (01) | DRG 885 ==
LOC: EMS 12:01 → B3A 16:53 → B2S 04-04 11:55 → B2X 04-12 09:33
PROVIDERS: ADMIT Psychiatry & Neurology Psychiatry; ATTEND Psychiatry & Neurology Psychiatry
PROC: 3E02340 Introduction of Influenza Vaccine into Muscle, Percutaneous Approach (ICD-10-PCS; principal; 2018-04-05)
PROC: 3E0234Z Introduction of Serum, Toxoid and Vaccine into Muscle, Percutaneous Approach (ICD-10-PCS; 2018-04-05)
DX: F31.5 Bipolar disorder, current episode depressed, severe, with psychotic features (principal); D72.829 Elevated white blood cell count, unspecified; E11.9 Type 2 diabetes mellitus without complications; E78.5 Hyperlipidemia, unspecified; F10.10 Alcohol abuse, uncomplicated; Z71.41 Alcohol abuse counseling and surveillance of alcoholic; F11.90 Opioid use, unspecified, uncomplicated; F12.90 Cannabis use, unspecified, uncomplicated; F17.200 Nicotine dependence, unspecified, uncomplicated; Z71.6 Tobacco abuse counseling; F41.9 Anxiety disorder, unspecified; Z78.1 Physical restraint status; Z91.19 Patient's noncompliance with other medical treatment and regimen; Z23 Encounter for immunization
CPT/HCPCS: 83036; 84439; 84443; 87081; G0480; J1200; J1630; J2060